=== PATIENT | female | born 1955 ===

== ENCOUNTER → 2022-03-02 07:45 | Outpatient (CLI) | payer MEDICARE, SELFPAY ==
--- NOTE | ~2022-03-02 | MR_ITS ---
EXAMINATION: MR lumbar spine wo con DATE: 03/02/2022 08:26 INDICATION: Spinal stenosis with lumbar neurogenic claudication and low back pain with walking. TECHNIQUE: Magnetic resonance imaging (MRI) of the lumbar spine was performed without intravenous con trast. Sequences included sagittal T2-weighted FSE, sagittal T2-weighted FS FSE, sagittal T1-weighted FSE, and axial T2-weighted FSE. COMPARISON: None FINDINGS: Minimal lumbar levocurvature. 4 mm anterolisthesis L4 on L5. Vertebral body heights are normal. Disc desiccation and mild disc height loss at L3-L4 and moderate disc height loss at L4-L5 and L5-S1. Dege nerative fibrovascular endplate changes at the right side of and L4-L5 and L5-S1. Additional likely d egenerative subarticular edema-like marrow signal change at the posterior elements of L3-L5. Likely d egenerative cystlike change with thin sclerotic margins at the cephalad base of the L4 spinous proces s. T1 hyperintense hemangioma at the right posterior aspect of L2. The conus medullaris terminates at L2. There is normal signal in the caudal spinal cord. Paravertebral soft tissues are unremarkable. T he following disc levels are specifically discussed: T12-L1: The disc does not extend beyond the endplate margin. There is mild bilateral facet joint oste oarthritis. There is no neural foraminal stenosis. There is no central canal stenosis. L1-L2: The disc does not extend beyond the endplate margin. There is mild bilateral facet joint osteo arthritis. There is no neural foraminal stenosis. There is no central canal stenosis. L2-L3: Mild disc protrusion at the right foraminal zone. There is moderate bilateral facet joint oste oarthritis. There is mild right neural foraminal stenosis. There is no central canal stenosis. L3-L4: Diffuse disc bulge. There is hypertrophy of the ligamentum flavum. There is severe bilateral f acet joint osteoarthritis. There is moderate bilateral neural foraminal stenosis. There is severe tom tral canal stenosis. L4-L5: Disc is bulging with annular fissure. There is hypertrophy of the ligamentum flavum. There is severe bilateral facet joint osteoarthritis. There is right and severe left neural foraminal stenosis . There is severe central canal stenosis. L5-S1: Disc is bulging with annular fissure. There is hypertrophy of the ligamentum flavum. There is left and severe right facet joint osteoarthritis. There is moderate left and severe right neural fora biju stenosis. There is mild central canal stenosis including narrowing of the left and right latera l recesses. IMPRESSION: 1. Mid to lower lumbar spondylosis with moderate disc height loss, hypertrophy of the ligamentum flav um and severe facet osteoarthritis resulting in severe neural foraminal stenosis at L3-L4 and L4-L5 a nd multilevel bilateral moderate to severe neural foraminal stenosis. Reviewed, dictated and finalized at location B. IMPRESSION: 1. Mid to lower lumbar spondylosis with moderate disc height loss, hypertrophy of the ligamentum flavum and severe facet osteoarthritis resulting in severe ne ural foraminal stenosis at L3-L4 and L4-L5 and multilevel bilateral moderate to severe neural foraminal stenosis.
== END ==
PROVIDERS: PCP Internal Medicine Infectious Disease; Visit Provider Internal Medicine Infectious Disease
DX: M48.062 Spinal stenosis, lumbar region with neurogenic claudication (principal); M47.896 Other spondylosis, lumbar region; M51.36 Other intervertebral disc degeneration, lumbar region
CPT/HCPCS: 72148